=== PATIENT | female | born 1995 | race Caucasian/White ===

== ENCOUNTER 2016-03-27 10:24 | Emergency (ER) | payer SELFPAY ==
[~2016-03-27] VITALS: Ht 154.9 cm; Wt 45.5 kg
[~2016-03-27 10:24] MED LIST: METR-1 PO; NAPR550 PO; ZOFR4TAB3 SL
[2016-03-27 10:26] VITALS: BP 123/70; PULSE 90; RESP 20; TEMP 97.8; O2SAT 98
[2016-03-27] MEDS ORDERED: ULTR50TA5 PO (11:23)
[2016-03-27] MEDS ORDERED: MOBI15TA PO (11:23)
--- NOTE | 2016-03-27 11:23 | PD ---
HPI Chief Complaint: Abdominal Pain Time Seen by Provider: 11:02 Travel History International Travel<30 days: No Contact w/Intl Traveler<30days: No Traveled to known affect area: No History of Present Illness HPI 21-year-old female complains of abdominal pain and shortness of breath. Patient has been to the emergency room several times recently for the same problem. Patient had CT scan abdomen pelvis and ultrasound done. Patient has large right ovarian cyst. Patient was referred to gynecology for follow-up. Patient was seen by stock speculator and awaiting insurance clearance for surgery. Patient has been taking Naprosyn for pain. Patient states that she had persistent pain despite taking Naprosyn. Patient denies any fever chills. Patient states that she has shortness of breath secondary to the abdominal pain. PFSH Past Medical History ADHD: Yes Asthma: Yes Diminished Hearing: No Respiratory: Yes (ASTHMA, BRONCHITIS) Immunizations Current: Yes Influenza Vaccination: No ?: Not LMP: 03/2016 : 1 Miscarriage: 1 Ovarian Cysts: Yes Past Surgical History Gynecologic Surgery: Yes (LAPARASCOPIC: RIGHT OVARY CYST DRAINAGE) Hysterectomy: No Oral Surgery: Yes (WISDOM TEETH) Social History Alcohol Use: No Tobacco Use: No (QUIT AGE 16) Substance Use: No Allergies-Medications (Allergen,Severity, Reaction): Coded Allergies: No Known Allergies (Unverified , 03/27/16) Reported Meds & Prescriptions Reported Meds & Active Scripts Active Ultram (Tramadol HCl) 50 Mg Tab 50 Mg PO Q6H PRN Mobic (Meloxicam) 15 Mg Tab 15 Mg PO DAILY Zofran Odt (Ondansetron Odt) 4 Mg Tab 4 Mg SL Q6HR PRN Anaprox DS (Naproxen Sodium) 550 Mg Tab 550 Mg PO DAILY PRN Flagyl (Metronidazole) 500 Mg Tab 500 Mg PO TID Review of Systems General / Constitutional: No: Fever Eyes: No: Visual changes HENT: No: Headaches Cardiovascular: No: Chest Pain or Discomfort Respiratory: Positive: Shortness of Breath Gastrointestinal: Positive: Abdominal Pain Genitourinary: No: Dysuria Musculoskeletal: No: Pain Skin: No Rash Neurologic: No: Weakness Psychiatric: No: Depression Endocrine: No: Polydipsia Hematologic/Lymphatic: No: Easy Bruising Physical Exam Narrative GENERAL: Well-nourished, well-developed patient. SKIN: Warm and dry. HEAD: Normocephalic. EYES: No scleral icterus. No injection or drainage. NECK: Supple, trachea midline. No JVD or lymphadenopathy. CARDIOVASCULAR: Regular rate and rhythm without murmurs, gallops, or rubs. RESPIRATORY: Breath sounds equal bilaterally. No accessory muscle use. GASTROINTESTINAL: Abdomen soft, nondistended. Patient has moderate tenderness on palpation right side the abdomen. No rebound tenderness. No guarding. MUSCULOSKELETAL: No cyanosis, or edema. BACK: Nontender without obvious deformity. No CVA tenderness. Data Data Last Documented VS Vital Signs Date Time Temp Pulse Resp B/P Pulse Ox O2 Delivery O2 Flow Rate FiO2 03/27/16 10:26 97.8 90 20 123/70 98 Room Air [facility] Medical Decision Making Medical Screen Exam Complete: Yes Emergency Medical Condition: Yes Medical Record Reviewed: Yes Differential Diagnosis Differential diagnosis including acute exacerbation abdominal pain secondary to ovarian cyst. Narrative Course 21-year-old female with right-sided abdominal pain and shortness of breath. History of right ovarian cyst. Patient was seen by stock speculator and awaiting surgery pending insurance clearance. Diagnosis Primary Impression: Right ovarian cyst Patient Instructions: General Instructions Additional Instructions: Take medications as directed for pain. Stop Naprosyn. Follow-up with stock speculator. Return if worse. Med/Other Pt SpecificInfo: Prescription(s) given Scripts Tramadol (Ultram)50 Mg Tab50 Mg PO Q6H PRN (PAIN) #30 TAB Prov:Devonte Quiros MD 03/27/16 Meloxicam (Mobic)15 Mg Tab15 Mg PO DAILY #20 TAB Prov:Devonte Quiros MD 03/27/16 Disposition: 01 DISCHARGE HOME Condition: Stable Devonte Quiros MD Mar 27, 2016 11:23
== END 2016-03-27 12:24 | disposition home or self-care (01) ==
LOC: NEPA 10:24
DX: N83.201 Unspecified ovarian cyst, right side (principal); J45.909 Unspecified asthma, uncomplicated; Z87.891 Personal history of nicotine dependence
CPT/HCPCS: 99283

== ENCOUNTER 2016-07-02 20:37 | Emergency (ER) | payer OTHER ==
[~2016-07-02] VITALS: Ht 154.9 cm; Wt 46.9 kg
[~2016-07-02 20:37] MED LIST changes: +MOBI15TA PO; +ULTR50TA5 PO
[2016-07-02 20:40] VITALS: BP 116/73; PULSE 77; RESP 16; TEMP 98.1; O2SAT 99
[2016-07-02] MEDS ORDERED: NAPR220T95 PO (21:06)
[2016-07-02] MEDS ORDERED: CEPH-460 PO (21:25)
[2016-07-02] MEDS ORDERED: CYCL1TAB29 PO (21:35)
[2016-07-02] MEDS ORDERED: PENI500T PO (21:35)
--- NOTE | 2016-07-02 21:41 | PD ---
HPI Chief Complaint: Oral / Dental Pain or Problem Time Seen by Provider: 21:20 Travel History International Travel<30 days: No Contact w/Intl Traveler<30days: No Traveled to known affect area: No History of Present Illness HPI 21-year-old female presents the emergency Department with bilateral jaw pain more the left than the right approximately one half weeks. Patient does have to bed teeth on the left, one on the lower jaw along the upper jaw. Which she feels may be contributing to her issue. Patient states her pain is always worse first thing in the morning and occasionally wakes her up at night. She does have pain with chewing, and yelling. She states the pain spreads and gives her a headache. She does take Naprosyn which seems to help. Fever, chills, or significant swelling of the jaw itself. Patient is working on getting a dentist. She has no known drug allergies. PFSH Past Medical History ADHD: Yes Asthma: Yes Diminished Hearing: No Respiratory: Yes (ASTHMA, BRONCHITIS) Immunizations Current: Yes Tetanus Vaccination: < 5 Years Influenza Vaccination: No ?: Not LMP: NOW : 1 Miscarriage: 1 Ovarian Cysts: Yes Past Surgical History Gynecologic Surgery: Yes (LAPARASCOPIC: RIGHT OVARY CYST DRAINAGE) Hysterectomy: No Oral Surgery: Yes (WISDOM TEETH) Social History Alcohol Use: No Tobacco Use: No (QUIT AGE 16) Substance Use: No Allergies-Medications (Allergen,Severity, Reaction): Coded Allergies: No Known Allergies (Unverified , 07/02/16) Reported Meds & Prescriptions Reported Meds & Active Scripts Active Flexeril (Cyclobenzaprine HCl) 10 Mg Tab 10 Mg PO HS Penicillin V Potassium 500 Mg Tab 500 Mg PO Q8H 10 Days Keflex (Cephalexin) 500 Mg Cap 500 Mg PO Q8H Reported Aleve (Naproxen Sodium) 220 Mg Tab 220 Mg PO BID PRN Review of Systems Except as stated in HPI: all other systems reviewed are Neg General / Constitutional: No: Fever, Chills Eyes: No: Visual changes HENT: Positive: Dental Difficulties, Earache, No: Headaches, Lightheadedness, Sore Throat, Rhinitis, Rhinorrhea, Congestion, Nosebleed, Neck Stiffness, Neck Pain, Ear Discharge Cardiovascular: No: Chest Pain or Discomfort Respiratory: No: Shortness of Breath Gastrointestinal: No: Abdominal Pain Genitourinary: No: Dysuria Musculoskeletal: No: Pain Skin: No Rash Neurologic: No: Weakness Psychiatric: No: Depression Endocrine: No: Polydipsia Hematologic/Lymphatic: No: Easy Bruising Physical Exam Narrative GENERAL: Patient appears no acute distress. SKIN: Warm and dry. Normal color. Normal turgor. No rash. HEAD: Atraumatic. Normocephalic. Patient has tenderness with palpation of the TMJ bilaterally with audible click with mandibular movement and clenching. EYES: Pupils equal and round. No scleral icterus. No injection or drainage. ENT: No nasal bleeding or discharge. Mucous membranes pink and moist. TMs are clear bilaterally. Patient does have cavities in the #14 and 19 tooth, with no obvious significant dental abscess currently. NECK: Trachea midline. Supple and nontender without significant lymphadenopathy. No Darnell's angina. CARDIOVASCULAR: Regular rate and rhythm. RESPIRATORY: No accessory muscle use. Clear to auscultation. Breath sounds equal bilaterally. MUSCULOSKELETAL: Extremities without clubbing, cyanosis, or edema. No obvious deformities. NEUROLOGICAL: Awake and alert. No obvious cranial nerve deficits. Motor grossly within normal limits. Five out of 5 muscle strength in the arms and legs. Normal speech. PSYCHIATRIC: Appropriate mood and affect; insight and judgment normal. Data Data Last Documented VS Vital Signs Date Time Temp Pulse Resp B/P Pulse Ox O2 Delivery O2 Flow Rate FiO2 07/02/16 20:40 98.1 77 16 116/73 99 MDM Medical Decision Making Medical Screen Exam Complete: Yes Emergency Medical Condition: Yes Differential Diagnosis Dental pain. TMJ. Possible dental abscess. Narrative Course Patient is medically stable at time of exam. Patient is given penicillin 500 mg 3 times a day 10 days. Patient is continue Naprosyn as she has been taking it daily as needed for her pain. Patient is given Flexeril 10 mg one daily at bedtime for probable TMJ. #15. Patient is to see her primary care physician and/or dentist. Discussed possible need for mouth guard for her TMJ. Patient can return if symptoms worsen as needed. Diagnosis Primary Impression: Pain due to dental caries Additional Impression: TMJ arthralgia Qualified Code: M26.622 - Arthralgia of left temporomandibular joint Referrals: Dentist Primary Care Physician Patient Instructions: Dental Caries (ED), General Instructions Additional Instructions: Patient is given penicillin 500 mg 3 times a day 10 days. Patient is continue Naprosyn as she has been taking it daily as needed for her pain. Patient is given Flexeril 10 mg one daily at bedtime for probable TMJ. #15. Patient is to see her primary care physician and/or dentist. Discussed possible need for mouth guard for her TMJ. Patient can return if symptoms worsen as needed. Med/Other Pt SpecificInfo: Prescription(s) given Scripts Cyclobenzaprine (Flexeril)10 Mg Tab10 Mg PO HS #15 TAB Ref 0 Prov:Joy Redman MD 07/02/16 Penicillin V Potassium 500 Mg Gtp006 Mg PO Q8H 10 Days Ref 0 Prov:Joy Redman MD 07/02/16 Disposition: 01 DISCHARGE HOME Condition: Stable Anam Bautista Jul 02, 2016 21:41 Anam Bautista Jul 02, 2016 21:41
== END 2016-07-02 21:56 | disposition home or self-care (01) ==
LOC: PHEFT 20:37
DX: K02.9 Dental caries, unspecified (principal); M26.623 Arthralgia of bilateral temporomandibular joint
CPT/HCPCS: 99283

== ENCOUNTER 2016-07-03 22:42 | Emergency (ER) | payer OTHER ==
[~2016-07-03] VITALS: Ht 154.9 cm; Wt 46.6 kg
[~2016-07-03 22:42] MED LIST changes: +CYCL1TAB29 PO; -METR-1 PO; -MOBI15TA PO; +NAPR220T95 PO; -NAPR550 PO; +PENI500T PO; -ULTR50TA5 PO; -ZOFR4TAB3 SL
[2016-07-03 22:46] VITALS: BP 129/89; PULSE 74; RESP 18; TEMP 98.2; O2SAT 100
[2016-07-04 00:25] VITALS: BP 129/89; PULSE 74; RESP 18; TEMP 98.2; O2SAT 100
[2016-07-04 01:00] VITALS: BP_SYST 119; BP_SYST 123; BP_SYST 131; BP_DIAS 69; BP_DIAS 72; BP_DIAS 78; RESP 18; O2SAT 97
[2016-07-04] MEDS ORDERED: SODIUM CHLORID 0.9% 500 ML INJ 500 ML IV ONE (01:15)
[2016-07-04] MEDS ORDERED: SODIUM CHLORIDE 0.9% FLUSH 10 ML FLUSH IVF PRN (01:15)
[2016-07-04 01:18] LABS: AUTOMATED NEUTROPHIL # 5.6 TH/MM3 (1.8-7.7); BASOPHIL % 0.2 % (0.0-2.0); EOSINOPHIL % 0.5 % (0.0-4.0); HEMATOCRIT 37.4 % (35.0-46.0); HEMO FLAGS DIFF FINAL; LYMPH % 15.7 % (9.0-44.0); LYMPHOCYTE # 1.1 TH/MM3 (1.0-4.8); MEAN CELL VOLUME 85.2 FL (80.0-100.0); MEAN CORPUSCULAR HEMOGLOBIN 27.9 PG (27.0-34.0); MEAN CORPUSCULAR HGB CONC 32.7 % (32.0-36.0); MONO % 6.5 % (0.0-8.0); NEUT % 77.1 % (16.0-70.0); PLATELET COUNT 163 TH/MM3 (150-450); RED BLOOD COUNT 4.39 MIL/MM3 (4.00-5.30); RED CELL DISTRIBUTION WIDTH 13.2 % (11.6-17.2); WHITE BLOOD COUNT 7.2 TH/MM3 (4.0-11.0)
--- NOTE | 2016-07-04 01:31 | PD ---
HPI Chief Complaint: Dizziness Time Seen by Provider: 01:01 Travel History International Travel<30 days: No Contact w/Intl Traveler<30days: No Traveled to known affect area: No History of Present Illness HPI 21 year-old female presents to the emergency department for complaint of dizziness and near syncope. 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 Patient has been having jaw pain and dental pain due to dental infection. Patient was just seen in the emergency department and diagnosed with possible TMJ and dental infection. Patient was given prescription for penicillin to take for 10 days and reportedly took the prescription to the pharmacy on Friday but was not able to fiber picker the prescription and take medication today. Patient is also given prescription for Flexeril and did not have access to that prescription either. Patient was instructed to take nonsteroidal anti-inflammatory medication for dental pain. Patient has past medical history history of ADHD asthma bronchitis and ovarian cysts with drainage. Patient has had dental surgery with extraction of wisdom teeth. Patient is currently menstruating and denies patient is 1 para 0 AB 1. No report of chest pain palpitations or shortness of breath. No abdominal pain or flank pain. No reported dysuria frequency or urgency. PFSH Past Medical History Narrative Medical ADHD asthma bronchitis AB 1 laparoscopic ovarian cyst drainage dental extraction no current tobacco use nursing notes reviewed ADHD: Yes Asthma: Yes Diminished Hearing: No Respiratory: Yes (ASTHMA, BRONCHITIS) Immunizations Current: Yes ?: Not LMP: Now : 1 Miscarriage: 1 Ovarian Cysts: Yes Past Surgical History Gynecologic Surgery: Yes (LAPARASCOPIC: RIGHT OVARY CYST DRAINAGE) Hysterectomy: No Oral Surgery: Yes (WISDOM TEETH) Social History Alcohol Use: No Tobacco Use: No (QUIT AGE 16) Substance Use: No Allergies-Medications (Allergen,Severity, Reaction): Coded Allergies: No Known Allergies (Unverified , 07/02/16) Reported Meds & Prescriptions Reported Meds & Active Scripts Active Flexeril (Cyclobenzaprine HCl) 10 Mg Tab 10 Mg PO HS Penicillin V Potassium 500 Mg Tab 500 Mg PO Q8H 10 Days Reported Aleve (Naproxen Sodium) 220 Mg Tab 220 Mg PO BID PRN Review of Systems Except as stated in HPI: all other systems reviewed are Neg General / Constitutional: No: Fever, Chills HENT: Positive: Headaches, Lightheadedness, Dental Difficulties, No: Congestion Cardiovascular: No: Chest Pain or Discomfort, Syncope Respiratory: No: Shortness of Breath Gastrointestinal: No: Nausea, Vomiting, Diarrhea, Abdominal Pain Genitourinary: No: Urgency, Frequency, Dysuria Musculoskeletal: No: Myalgias, Arthralgias Skin: No Rash Neurologic: Positive: Weakness, Dizziness, No: Syncope, Focal Abnormalities, Coordination Problem Psychiatric: No: Anxiety Endocrine: No: Heat Intolerance Hematologic/Lymphatic: No: Easy Bruising Physical Exam Narrative GENERAL: Well-developed well-nourished female in no acute distress no respiratory distress SKIN: Warm and dry. HEAD: Atraumatic. Normocephalic. EYES: Pupils equal and round. No scleral icterus. No injection or drainage. ENT: No nasal bleeding or discharge. Mucous membranes pink and moist. Poor dentition. NECK: Trachea midline. No JVD. Supple no meningismus no nuchal rigidity. CARDIOVASCULAR: Regular rate and rhythm. RESPIRATORY: No accessory muscle use. Clear to auscultation. Breath sounds equal bilaterally. GASTROINTESTINAL: Abdomen soft, non-tender, nondistended. Hepatic and splenic margins not palpable. MUSCULOSKELETAL: Extremities without clubbing, cyanosis, or edema. No obvious deformities. NEUROLOGICAL: Awake and alert. No obvious cranial nerve deficits. Motor grossly within normal limits. Five out of 5 muscle strength in the arms and legs. Normal speech. PSYCHIATRIC: Appropriate mood and affect; insight and judgment normal. Data Data Last Documented VS Vital Signs Date Time Temp Pulse Resp B/P Pulse Ox O2 Delivery O2 Flow Rate FiO2 07/04/16 01:00 97 07/04/16 01:00 71 18 123/72 65 18 119/69 76 18 131/78 07/04/16 00:30 Room Air 07/04/16 00:25 98.2 Orders Electrocardiogram (07/04/16 01:01) Basic Metabolic Panel (Bmp) (07/04/16 01:01) Ed Urine Pregnancytest Poc (07/04/16 01:01) Complete Blood Count With Diff (07/04/16 01:01) Magnesium (Mg) (07/04/16 01:01) Urinalysis - C+S If Indicated (07/04/16 01:01) Ecg Monitoring (07/04/16 01:01) Iv Access Insert/Monitor (07/04/16 01:01) Oximetry (07/04/16 01:01) Sodium Chloride 0.9% Flush (Ns Flush) (07/04/16 01:15) Orthostatic Vital Signs (07/04/16 01:01) Sodium Chlorid 0.9% 500 Ml Inj (Ns 500 M (07/04/16 01:15) Drug Screen, Random Urine (07/04/16 01:01) Penicillin V Potassium (Veetids) (07/04/16 02:30) Labs Laboratory Tests Test 07/04/16 07/04/16 01:08 02:00 White Blood Count 7.2 TH/MM3 Red Blood Count 4.39 MIL/MM3 Hemoglobin 12.3 GM/DL Hematocrit 37.4 % Mean Corpuscular Volume 85.2 FL Mean Corpuscular Hemoglobin 27.9 PG Mean Corpuscular Hemoglobin 32.7 % Concent Red Cell Distribution Width 13.2 % Platelet Count 163 TH/MM3 Mean Platelet Volume 8.8 FL Neutrophils (%) (Auto) 77.1 % Lymphocytes (%) (Auto) 15.7 % Monocytes (%) (Auto) 6.5 % Eosinophils (%) (Auto) 0.5 % Basophils (%) (Auto) 0.2 % Neutrophils # (Auto) 5.6 TH/MM3 Lymphocytes # (Auto) 1.1 TH/MM3 Monocytes # (Auto) 0.5 TH/MM3 Eosinophils # (Auto) 0.0 TH/MM3 Basophils # (Auto) 0.0 TH/MM3 CBC Comment DIFF FINAL Differential Comment Sodium Level 141 MEQ/L Potassium Level 3.4 MEQ/L Chloride Level 106 MEQ/L Carbon Dioxide Level 27.7 MEQ/L Anion Gap 7 MEQ/L Blood Urea Nitrogen 16 MG/DL Creatinine 0.83 MG/DL Estimat Glomerular Filtration 85 ML/MIN Rate Random Glucose 95 MG/DL Calcium Level 8.6 MG/DL Magnesium Level 1.9 MG/DL Urine Color YELLOW Urine Turbidity CLEAR Urine pH 5.5 Urine Specific [place] 1.015 Urine Protein NEG mg/dL Urine Glucose (UA) NEG mg/dL Urine Ketones NEG mg/dL Urine Occult Blood TRACE Urine Nitrite NEG Urine Bilirubin NEG Urine Leukocyte Esterase NEG Urine RBC 0-2 /hpf Urine WBC 0-2 /hpf Urine Squamous Epithelial 6-8 /hpf Cells Urine Bacteria NONE /hpf Microscopic Urinalysis Comment CULT NOT INDICATED Urine Barbiturates Screen NEG Urine Benzodiazepines Screen NEG Urine Cocaine Screen NEG Urine Cannabinoids Screen NEG MDM Medical Decision Making Medical Screen Exam Complete: Yes Emergency Medical Condition: Yes Medical Record Reviewed: Yes Interpretation(s) EKG: Normal sinus rhythm rate [address] elevation ectopy or injury pattern change noted Differential Diagnosis Dizziness, near vasovagal syncope, arrhythmia, electronic disturbance, dentalgia , dental abscess, UTI, , adverse medication reaction Narrative Course Patient placed on monitor EKG performed normal sinus rhythm no acute injury pattern or ectopy noted; IV access obtained specimens collected and sent for resulting Labs resulted and orthostatic measurements obtained without significant blood pressure or heart rate variance supine sitting to standing; CBC is automated differential within normal limits, metabolic panel within normal range except mild hypokalemia, [id number] hCG negative, urinalysis normal, urine drug screen negative Patient given first dose of antibiotic penicillin for dental pain/early dental abscess and encouraged to complete course of antibiotic as recently prescribed. Patient stable for outpatient management. Diagnosis Primary Impression: Vasovagal near-syncope Additional Impression: Dentalgia Referrals: Dentist call for appointment Primary Care Physician call for appointment Patient Instructions: General Instructions Additional Instructions: Increase fluid hydration Complete course of antibiotic as prescribed Follow-up with primary care provider Follow-up with dentist Return to the emergency department for any concerns or change in condition Take acetaminophen as needed for fever 100.4 days Fahrenheit or greater Take ibuprofen/Advil/Motrin as tolerated for fever 100.4F or greater or for pain associated with inflammation or may use Aleve/Naprosyn/naproxen Med/Other Pt SpecificInfo: No Change to Meds Disposition: 01 DISCHARGE HOME Condition: Stable Joy Redman MD Jul 04, 2016 01:31
[2016-07-04 01:46] LABS: POTASSIUM 3.4 MEQ/L (3.5-5.1)
[2016-07-04 01:49] LABS: BICARBONATE 27.7 MEQ/L (21.0-32.0); MAGNESIUM 1.9 MG/DL (1.5-2.5)
[2016-07-04 02:08] LABS: BLOOD, URINE TRACE (NEG); GLUCOSE,URINE NEG (NEG); KETONE, URINE NEG (NEG); NITRITE,URINE NEG (NEG); PH, URINE 5.5 (5.0-8.5)
[2016-07-04 02:13] LABS: URINE COLOR YELLOW (YELLW/STRAW)
[2016-07-04 02:14] LABS: COMMENT (UR) CULT NOT INDICATED; CULTURE IF INDICATED CULT NOT INDICATED; RBC, URINE 0-2 /hpf (0-3); WBC, URINE 0-2 /hpf (0-5)
[2016-07-04 02:18] LABS: BARBITURATES, URINE NEG (NEG); COCAINE, URINE NEG (NEG)
[2016-07-04 02:20] VITALS: BP 108/58; PULSE 70; RESP 18; O2SAT 98
[2016-07-04 02:20] LABS: AMPHETAMINE, URINE NEG (NEG)
[2016-07-04] MEDS ORDERED: PENICILLIN V POTASSIUM 500 MG TAB PO ONE (02:30)
--- NOTE | 2016-07-04 13:51 | EKG ---
Date Performed: 07/04/2016 Time Performed: 01:25:00 PTAGE: 21 years EKG: Sinus rhythm Normal ECG Compared to prior tracing no significant change PREVIOUS TRACING : 11/13/2015 19.39 DOCTOR: Gregory Young Interpretating Date/Time 07/04/2016 13:50:43
== END 2016-07-04 02:53 | disposition home or self-care (01) ==
LOC: PHED 22:42
DX: R55 Syncope and collapse (principal); K08.89 Other specified disorders of teeth and supporting structures; R68.84 Jaw pain; Z86.59 Personal history of other mental and behavioral disorders; Z87.09 Personal history of other diseases of the respiratory system; Z87.891 Personal history of nicotine dependence
CPT/HCPCS: 80048; 80307; 81001; 83735; 84703; 85025; 93005; 96360; 99284; J7040

== ENCOUNTER 2016-10-03 07:42 | Emergency (ER) | payer OTHER ==
[~2016-10-03] VITALS: Ht 154.9 cm; Wt 45.0 kg
[2016-10-03 07:45] VITALS: BP 140/86; PULSE 79; RESP 16; TEMP 98.1; O2SAT 100
[2016-10-03] MEDS ORDERED: IBUPROFEN 600 MG TAB PO ONE (08:00)
--- NOTE | 2016-10-03 08:00 | PD ---
HPI Chief Complaint: Injury Time Seen by Provider: 07:52 Travel History International Travel<30 days: No Contact w/Intl Traveler<30days: No Traveled to known affect area: No History of Present Illness HPI 21yo F with no significant PMH presents to the ED with c/o bilateral hand pain s /p injury at work today. 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 Pt is complaining of distal left thumb pain and pain in distal right 3rd and 4th digits. No laceration or bleeding. Denies any other complaints. Able to move all digits. PFSH Past Medical History ADHD: Yes Asthma: Yes Diminished Hearing: No Respiratory: Yes (ASTHMA, BRONCHITIS) Immunizations Current: Yes Tetanus Vaccination: < 5 Years ?: Unknown : 1 Miscarriage: 1 Ovarian Cysts: Yes Past Surgical History Gynecologic Surgery: Yes (LAPARASCOPIC: RIGHT OVARY CYST DRAINAGE) Hysterectomy: No Oral Surgery: Yes (WISDOM TEETH) Social History Alcohol Use: No Tobacco Use: No (QUIT AGE 16) Substance Use: No Allergies-Medications (Allergen,Severity, Reaction): Coded Allergies: No Known Allergies (Unverified , 10/03/16) Reported Meds & Prescriptions Reported Meds & Active Scripts Active No Active Prescriptions or Reported Medications Review of Systems Except as stated in HPI: all other systems reviewed are Neg Physical Exam Narrative GENERAL: 21yo F not in distress. SKIN: Focused skin assessment warm/dry. HEAD: Atraumatic. Normocephalic. CARDIOVASCULAR: Regular rate and rhythm. No murmur appreciated. RESPIRATORY: No accessory muscle use. Clear to auscultation. Breath sounds equal bilaterally. GASTROINTESTINAL: Abdomen soft, non-tender, nondistended. MUSCULOSKELETAL: Left hand: +TTP DIP of first digit. FROM in all digits. No ecchymoses or erythema. Radial pulse intact. Sensation intact. Cap refill < 2sec. Right hand: +TTP DIP 3rd and 4th digit. FROM in all digits. Sensation intact. Radial pulse intact. Cap refill <2sec. NEUROLOGICAL: Awake and alert. No obvious cranial nerve deficits. Motor grossly within normal limits. Normal speech. PSYCHIATRIC: Appropriate mood and affect; insight and judgment normal. Data Data Last Documented VS Vital Signs Date Time Temp Pulse Resp B/P Pulse Ox O2 Delivery O2 Flow Rate FiO2 10/03/16 07:51 16 100 Room Air 10/03/16 07:45 98.1 79 140/86 Orders Hand, Limited (2vws) (10/03/16 ) Hand, Limited (2vws) (10/03/16 ) Ibuprofen (Motrin) (10/03/16 08:00) Acetaminophen (Tylenol) (10/03/16 08:15) MDM Medical Decision Making Medical Screen Exam Complete: Yes Emergency Medical Condition: Yes Differential Diagnosis Fracture vs. contusion vs. crush injury Narrative Course 21yo F with complaint of pain in fingers after the stool closed on her fingers. No open wounds on fingers and full range of motion. Xray of bilateral hands showed no acute fracture or dislocation. Pt given acetaminophen with improvement of pain. Return precautions given. Diagnosis Primary Impression: Hand contusion Qualified Code: S60.229A - Contusion of hand, unspecified laterality, initial encounter Patient Instructions: General Instructions Departure Forms: Tests/Procedures, Work Release Enter return to work date: Oct 05, 2016 Additional Instructions: Please follow up with your PMD in 3-7 days. Return to the ED if symptoms worsen. Med/Other Pt SpecificInfo: Prescription(s) given Scripts Acetaminophen (Tylenol)325 Mg Tud157 Mg PO Q6H PRN (PAIN SCALE 1 TO 4) #20 TAB Ref 0 Prov:Mary Martinez DO 10/03/16 Disposition: 01 DISCHARGE HOME Condition: Stable Mary Martinez DO Oct 03, 2016 08:00
[2016-10-03] MEDS ORDERED: ACETAMINOPHEN 500 MG CPLT PO ONE (08:15)
--- NOTE | 2016-10-03 08:39 | RADRPT ---
EXAM DATE/TIME: 10/03/2016 08:15 [facility] COMPARISON: HAND LEFT LIMITED (2VWS), October 03, 2016, 8:19. INDICATIONS : Right hand pain after falling this morning. Pain mostly in the 2nd and 3rd digits. MEDICAL HISTORY : None. SURGICAL HISTORY : None. ENCOUNTER: Initial ACUITY: 1 day PAIN SCORE: 8/10 LOCATION: Right hand. FINDINGS: Two view examination of the right hand demonstrates no soft tissue swelling, dislocation, or fracture . The joint spaces are maintained. Bony mineralization is normal. CONCLUSION: 1. No acute fracture or dislocation. Archie Granda MD on October 03, 2016 at 8:35 Board Certified Radiologist. This report was verified electronically.
--- NOTE | 2016-10-03 08:40 | RADRPT ---
EXAM DATE/TIME: 10/03/2016 08:19 [facility] COMPARISON: No previous studies available for comparison. INDICATIONS : Left hand pain after falling this morning. Pain mostly in the thumb. MEDICAL HISTORY : None. SURGICAL HISTORY : None. ENCOUNTER: Initial ACUITY: 1 day PAIN SCORE: 8/10 LOCATION: Left lateral hand. FINDINGS: Two view examination of the left hand demonstrates no soft tissue swelling, dislocation, or fracture. The joint spaces are maintained. Bony mineralization is normal. CONCLUSION: 1. No acute fracture or dislocation. Archie Granda MD on October 03, 2016 at 8:38 Board Certified Radiologist. This report was verified electronically.
[2016-10-03] MEDS ORDERED: TYLE325T PO (09:10)
== END 2016-10-03 09:26 | disposition home or self-care (01) ==
LOC: PHED 07:42
DX: S60.221A Contusion of right hand, initial encounter (principal); S60.222A Contusion of left hand, initial encounter; W23.0XXA Caught, crushed, jammed, or pinched between moving objects, initial encounter; Y93.89 Activity, other specified; Y92.524 Gas station as the place of occurrence of the external cause; Y99.0 Civilian activity done for income or pay
CPT/HCPCS: 73120; 99284

== ENCOUNTER 2016-12-10 16:40 | Emergency (ER) | payer SELFPAY ==
[~2016-12-10] VITALS: Ht 154.9 cm; Wt 45.5 kg
[~2016-12-10 16:40] MED LIST changes: -CYCL1TAB29 PO; -NAPR220T95 PO; -PENI500T PO; +TYLE325T PO
[2016-12-10 16:51] VITALS: BP 126/69; PULSE 73; RESP 16; TEMP 98.3; O2SAT 100
--- NOTE | 2016-12-10 17:21 | PD ---
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 States she thought it may be a yeast infection so she applied topical yeast infection cream yesterday evening. Shortly afterward she had bloody vaginal discharge and has had mild bleeding since then. Patient states her last menstrual cycle ended about 1.5 weeks ago. She has had unprotected sex a few days ago. Usually she uses protection such as condoms or the pullout method and denies possibility of . She denies vomiting, abdominal pain, pelvic pain, flank pain, dysuria, urgency, frequency. She had Chlamydia at age 15 and states symptoms do not feel the same. Denies any foul odors. Patient is status-post scheduled oophorectomy on the right side for hospital in July of this year. States she had her ovary and fallopian tube removed because of large cysts that were causing her pain. She is not on any control. She has normal menstrual cycles every month that last 5 days. PFSH Past Medical History ADHD: Yes Asthma: Yes Diminished Hearing: No Respiratory: Yes (ASTHMA, BRONCHITIS) Immunizations Current: Yes Influenza Vaccination: No ?: Unknown LMP: 2 weeks ago : 1 Miscarriage: 1 Ovarian Cysts: Yes Past Surgical History Gynecologic Surgery: Yes (LAPARASCOPIC: RIGHT OVARY CYST DRAINAGE) Hysterectomy: No Oral Surgery: Yes (WISDOM TEETH) Social History Alcohol Use: No Tobacco Use: No (QUIT AGE 16) Substance Use: No Allergies-Medications (Allergen,Severity, Reaction): Coded Allergies: No Known Allergies (Unverified , 12/10/16) Reported Meds & Prescriptions Reported Meds & Active Scripts Active Bactrim DS (Sulfamethoxazole-Trimethoprim) 800-160 Mg Tab 1 Tab PO BID Review of Systems Except as stated in HPI: all other systems reviewed are Neg Physical Exam Narrative GENERAL: Well-nourished, well-developed female in no acute distress. Afebrile. Ambulatory. SKIN: Focused skin assessment warm/dry. HEAD: Normocephalic. EYES: No scleral icterus. No injection or drainage. NECK: Supple, trachea midline. No JVD or lymphadenopathy. CARDIOVASCULAR: Regular rate and rhythm without murmurs, gallops, or rubs. RESPIRATORY: Breath sounds equal bilaterally. No accessory muscle use. GASTROINTESTINAL: Abdomen soft, non-tender, nondistended. No CVA tenderness. GENITOURINARY: Examined in the presence of the nurse. Normal external genitalia without lesions or erythema. Vaginal vault has thick, bloody and curd -like drainage. Cervical os was closed with moderate drainage. No cervical motion tenderness. Uterus nontender and nonenlarged. Bilateral adnexa nontender without masses. Data Data Last Documented VS Vital Signs Date Time Temp Pulse Resp B/P (MAP) Pulse Ox O2 Delivery O2 Flow Rate FiO2 12/10/16 16:51 98.3 73 16 126/69 (88) 100 Orders Orders Gc And Chlamydia Pcr (12/10/16 17:09) Wet Prep Profile (12/10/16 17:09) Ed Urine Pregnancytest Poc (12/10/16 17:09) Urinalysis - C+S If Indicated (12/10/16 17:09) Urine Culture (12/10/16 17:25) Azithromycin Powd Pack (Zithromax Powd P (12/10/16 18:00) Ceftriaxone Inj (Rocephin Inj) (12/10/16 18:00) Lidocaine 1% Inj (50 Ml) (Xylocaine 1% I (12/10/16 18:00) Fluconazole (Diflucan) (12/10/16 18:15) Labs Laboratory Tests Test 12/10/16 17:20 12/10/16 17:25 Clue Cells (Wet Prep) NONE SEEN Vaginal Trichomonas (Wet Prep) NONE SEEN Vaginal Yeast (Wet Prep) NONE SEEN Urine Collection Type CLEAN CATCH Urine Color YELLOW Urine Turbidity SLIGHT Urine pH 6.5 Urine Specific [place] 1.023 Urine Protein NEG mg/dL Urine Glucose (UA) NEG mg/dL Urine Ketones NEG mg/dL Urine Occult Blood LARGE Urine Nitrite NEG Urine Bilirubin NEG Urine Leukocyte Esterase NEG Urine RBC 15-19 /hpf Urine WBC 3-5 /hpf Urine WBC Clumps FEW Urine Squamous Epithelial Cells > 8 /hpf Urine Amorphous Sediment MOD Urine Bacteria MOD /hpf Microscopic Urinalysis Comment CULTURE INDICATED Urine Collection Time 1725 MDM Medical Decision Making Medical Screen Exam Complete: Yes Emergency Medical Condition: Yes Medical Record Reviewed: Yes Differential Diagnosis Endometriosis, ovarian cysts, PID, yeast infection, , Trichomonas, yeast infection Narrative Course 21-year-old female presents to the emergency room for evaluation of bloody, thick, foul-smelling vaginal discharge and itching that started yesterday. Patient applied topical Monistat cream and states shortly afterward she noticed a large clump of bloody discharge. She has had minimal bloody discharge since. Her last period was 1.5 weeks ago. Patient has had unprotected sex one time since her last period. She denies ever, chills, nausea, vomiting, abdominal pain, pelvic pain, dysuria, urgency, frequency, flank pain, or significant discharge or cramping. ED test is negative. Physical exam is unremarkable. No flank or pelvic tenderness. Pelvic exam performed in the presence of nurse reveals moderate thick, bloody, cottage cheese like discharge in the vaginal vault. Cervix is closed with mild bloody drainage. No cervical motion tenderness or adnexal tenderness. Wet prep is negative. Patient will be treated empirically for STDs with azithromycin and ceftriaxone. She was also given a dose of Diflucan in the emergency room as symptoms are most consistent with yeast infection. UA shows leukocyte esterase and moderate bacteria with squamous cells. Likely contamination patient will be treated empirically with Bactrim. She was told to follow-up with her [facility] consultant for dysfunctional uterine bleeding or return for worsening symptoms. She understands and agrees to plan. Diagnosis Primary Impression: Yeast infection Additional Impressions: Urinary tract infection Qualified Codes: N30.00 - Acute cystitis without hematuria Dysfunctional uterine bleeding Referrals: [employer] Additional Instructions: Use protection to prevent and STD. Follow-up with a [facility] consultant. Return to the emergency room for worsening symptoms. Scripts Sulfamethoxazole-Trimethoprim (Bactrim DS) 800-160 Mg Tab 1 TAB PO BID for Infection, #6 TAB 0 Refills Prov: Saul Alford MD 12/10/16 Disposition: 01 DISCHARGE HOME Condition: Stable Valentina Matos Dec 10, 2016 17:21
[2016-12-10 17:34] LABS: BLOOD, URINE LARGE (NEG); GLUCOSE,URINE NEG (NEG); KETONE, URINE NEG (NEG); NITRITE,URINE NEG (NEG); PH, URINE 6.5 (5.0-8.5)
[2016-12-10 17:40] LABS: METHOD OF COLLECTION CLEAN CATCH; URINE COLOR YELLOW (YELLW/STRAW)
[2016-12-10 17:42] LABS: RBC, URINE 15-19 /hpf (0-3)
[2016-12-10 17:43] LABS: BACTERIA, URINE MOD /hpf; COMMENT (UR) CULTURE INDICATED; COMMENT2 (UR) MUCOUS PRESENT; CULTURE IF INDICATED CULTURE INDICATED; SQUAMOUS EPITHELIAL CELL URINE > 8 /hpf (0-5)
[2016-12-10] MEDS ORDERED: LIDOCAINE HCL 1% 50 ML VIAL IM ONE (18:00)
[2016-12-10] MEDS ORDERED: cefTRIAXone 250 MG VIAL IM ONE (18:00)
[2016-12-10] MEDS ORDERED: AZITHROMYCIN PWD FOR SUSP 1 GM PACKET PO ONE (18:00)
[2016-12-10] MEDS ORDERED: FLUCONAZOLE 100 MG TAB PO ONE (18:15)
[2016-12-10] MEDS ORDERED: BACT800T5 PO (18:20)
[2016-12-10 22:16] LABS: CHLAMYDIA PCR NOT DETECTED (NOT DETECT); NEISSERIA PCR NOT DETECTED (NOT DETECT)
== END 2016-12-10 19:28 | disposition home or self-care (01) ==
LOC: PHED 16:40
DX: B37.9 Candidiasis, unspecified (principal); N30.00 Acute cystitis without hematuria; N93.8 Other specified abnormal uterine and vaginal bleeding
CPT/HCPCS: 81001; 84703; 87086; 87210; 87491; 87591; 96372; 99284; J0696